=== PATIENT | female | born 1960 | race Caucasian/White ===

== ENCOUNTER 2021-08-01 13:44 | Emergency (ER) | payer OTHER ==
[~2021-08-01] VITALS: Ht 157.5 cm; Wt 72.6 kg
[2021-08-01 13:50] VITALS: BP 209/138
--- NOTE | 2021-08-01 13:57 | NUR ---
PATIENT AMBULATED TO BED 4.
--- NOTE | 2021-08-01 14:22 | NUR ---
PHLEBOTOMY AT BEDSIDE TO DRAW LABS
--- NOTE | 2021-08-01 14:23 | NUR ---
TECH AT BEDSIDE PERFORMING EKG
--- NOTE | 2021-08-01 14:29 | NUR ---
PER ERMD 12 LEAD WAS DONE ON PT AND CAME BACK NSR AT 89 HR.
[2021-08-01 14:48] LABS: CARBON DIOXIDE 26.1 mmol/L (21-32); CREATININE 1.1 mg/dL (0.6-1.3); POTASSIUM 4.1 mmol/L (3.5-5.1)
--- NOTE | 2021-08-01 15:07 | NUR ---
RADIOOGY AT BEDSIDE FOR XRAY
[2021-08-01] MEDS ORDERED: HYDR-4004 PO (16:29)
[2021-08-01 16:50] VITALS: BP 161/92
--- NOTE | 2021-08-01 16:50 | NUR ---
Patient discharged with v/s stable. Written and verbal after care instructions given and explained. Patient alert, oriented and verbalized understanding of instructions. Ambulatory with steady gait. All questions addressed prior to discharge. ID band removed. Patient advised to follow up with PMD. Rx of HYDROCHLOROTHIAZIDE given. Patient educated on indication of medication including possible reaction and side effects. Opportunity to ask questions provided and answered.
== END 2021-08-01 16:49 | disposition home or self-care (01) ==
LOC: MED 13:44
DX: M16.12 Unilateral primary osteoarthritis, left hip (principal); I10 Essential (primary) hypertension; Z79.899 Other long term (current) drug therapy
CPT/HCPCS: 36415; 73502; 80048; 84484; 93005; 99285; Q0092

== ENCOUNTER 2021-08-16 15:51 | Emergency (ER) | payer OTHER ==
[~2021-08-16] VITALS: Ht 157.5 cm; Wt 81.2 kg
[~2021-08-16 15:51] MED LIST: HYDR-4004 PO
[2021-08-16 15:58] VITALS: BP 169/113
--- NOTE | 2021-08-16 16:00 | NUR ---
NO NURSING INTERVENTIONS NEEDED. SEEN & TREATED BY DR BRYAN.
--- NOTE | 2021-08-16 16:01 | NUR ---
Patient being evaluated by physician at TRIAGE ROOM.
[2021-08-16] MEDS ORDERED: HYDR-4004 PO (16:03)
[2021-08-16 16:05] VITALS: BP 169/113
--- NOTE | 2021-08-16 16:05 | NUR ---
Patient discharged with BP 169/113 . DENIES PLUMMER OR DIZZINESS. MD MADE AWARE Written and verbal after care instructions given and explained. Patient alert, oriented and verbalized understanding of instructions. Ambulatory with steady gait. All questions addressed prior to discharge. ID band removed. Patient advised to follow up with PMD. Rx of ORETIC given. Patient educated on indication of medication including possible reaction and side effects. Opportunity to ask questions provided and answered.
== END 2021-08-16 16:05 | disposition home or self-care (01) ==
LOC: MED 15:51
DX: I10 Essential (primary) hypertension (principal); Z76.0 Encounter for issue of repeat prescription; Z79.899 Other long term (current) drug therapy
CPT/HCPCS: 99283